=== PATIENT | female | born 1990 | race Caucasian/White ===

== ENCOUNTER 2019-03-05 13:12 | Emergency (ER) | payer OTHER ==
--- NOTE | 2019-03-05 14:22 | ULT ---
EXAM: US Pelvic W Doppler PROVIDED CLINICAL HISTORY: Vaginal bleeding in patient with positive . COMPARISON: None FINDINGS: There is evidence of a single intrauterine gestation. Cardiac Doppler does demonstrates heart t ones with a heart rate of 168 bpm. The crown-rump length measures 2.63 cm corresponding to gestational age by ultrasound of 9 weeks and 3 days with an TERESO on 10/05/2019. The gestational age by last menstrual period is 9 weeks and 5 days. Adjacent to the inferior aspect of the gestational sac, there is a small crescentic hypoechoic area m easuring 1.9 cm x 0.8 cm x 2.2 cm. Color flow evaluation does not demonstrate flow in this region. This is most suggestive of a small subchorionic hemorrhage. Small anechoic structure measuring 1.1 cm is seen in the left ovary which may represent a corpus lute al cyst. Flow is demonstrated within the left ovary on color flow evaluation spectral analysis. The right ovary is not visualized. IMPRESSION: 1. Small subchorionic hemorrhage. Continued follow-up evaluation is recommended. 2. Single intrauterine gestation with heart tones documented. Gestational age by measurement of the crown-rump length is 9 weeks and 3 days.
[2019-03-05 14:26] LABS: #Basophils 0.1 thou/uL (0.0-0.2); #Eosinphils 0.1 thou/uL (0.0-0.7); #Lymphocytes 2.7 thou/uL (1.20-3.40); #Monocytes 0.7 thou/uL (0.11-0.59); #Neutrophils 7.3 thou/uL (1.40-6.50); %Basophils 0.5 % (0.0-1.0); %Eosinophils 0.6 % (0.0-10.0); %Lymphocytes 25.1 % (21.0-51.0); %Monocytes 6.8 % (0.0-10.0); Hemoglobin 13.4 g/dL (12.0-16.0); Mean Corpuscular Hemoglobin 31.3 pg (27.0-31.0); Mean Corpuscular Volume 89.5 fL (78.0-98.0); Mean Platelet Volume 8.3 fL (7.4-10.4); Platelet Count 175 thou/uL (130-400); RBC Distribution Width 11.6 % (11.5-14.5); Red Blood Cell (RBC) Count 4.28 mill/uL (4.20-5.40); White Blood Cell (WBC) Count 10.9 thou/uL (4.8-10.8)
[2019-03-05 16:16] LABS: Bacteria/HPF None Seen HPF (None Seen); Bilirubin Negative (Negative); Blood, Urine 2+ (Negative); Clarity Clear (Clear); Glucose, Urine (Dipstick) Normal (Negative); Leukocyte 25 Leu/uL (Negative); Nitrite Negative (Negative); Protein, Urine (Dipstick) Negative (Neg-Trace); RBC/HPF 0-3 HPF (0-3); Squamous Epithelial 0-3 HPF (0-3)
== END 2019-03-05 17:33 | disposition home or self-care (01) ==
LOC: ERS 13:12
DX: O20.0 Threatened abortion (principal); Z87.891 Personal history of nicotine dependence; Z79.899 Other long term (current) drug therapy; Z3A.10 10 weeks gestation of pregnancy
CPT/HCPCS: 36415; 76856; 81003; 81015; 84702; 85025; 86900; 86901; 87086; 90384; 93976; 96372

== ENCOUNTER 2019-08-30 18:52 | Day surgery (SDC) | payer OTHER ==
[2019-08-30] MEDS ORDERED: hydrALAZINE 20 MG/ML VIAL SLOW IVP PRN (19:23)
[2019-08-30 19:43] LABS: Bacteria/HPF None Seen HPF (None Seen); Bilirubin Negative (Negative); Blood, Urine Negative (Negative); Clarity Clear (Clear); Glucose, Urine (Dipstick) Normal (Negative); Leukocyte Negative Leu/uL (Negative); Nitrite Negative (Negative); Protein, Urine (Dipstick) Negative (Neg-Trace); RBC/HPF 0-3 HPF (0-3); Urobilinogen 3 mg/dL (Less than 2); WBC/HPF 0-3 HPF (0-3)
--- NOTE | 2019-08-31 07:13 | ER ---
DATE OF SERVICE: OB ED NOTE: TIME OF SERVICE: 2000 hours. PRESENTING COMPLAINT: Abdominal and lower back pain at 35 weeks' gestation. HISTORY OF PRESENT ILLNESS: Ms. Arriaga is a 28-year-old, 3, para 1, AB1 at 35 weeks and 1 day with a due date of 10/03. She sees Dr. Devi, [facility], who has had an unremarkable . She is scheduled for repeat on 09/29. She has had a history of kind of lower abdominal cramping. No change of discharge. No bleeding. No loss of fluid. She has had an active fetus. She was seen in the office earlier today with same complaints and re-presents to Labor and Delivery. 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 Pap negative. Rubella immune. VDRL nonreactive. Hepatitis B, GC, chlamydia negative. 50 g not done. PAST MEDICAL HISTORY: None. PAST SURGICAL HISTORY: . ALLERGIES: DENIES. MEDICATIONS: vitamins. SOCIAL HISTORY: Denies tobacco, alcohol, or drug use. FAMILY HISTORY: Noncontributory. REVIEW OF SYSTEMS: Noncontributory. PHYSICAL EXAMINATION: GENERAL: White female, in no acute distress. VITAL SIGNS: Temperature 98.5, respirations 18, blood pressure 118/72, pulse 85. HEENT: Within normal limits. LUNGS: Clear to auscultation bilaterally. HEART: Regular rhythm. ABDOMEN: Soft and nontender. Fundal height 35. FHTs 140s. GENITALIA: Vulva without lesions. Vaginal exam deferred. EXTREMITIES: No clubbing, cyanosis, or edema. Prolonged monitoring is carried out for greater than an hour because of lower abdominal pain, which revealed a category 1 tracing. Positive accelerations, no decelerations. Fem cath urinalysis was done, which was completely negative with no evidence of UTI. IMPRESSION: Discomforts of , no evidence of labor, urinary tract infection at 35 weeks' gestation. PLAN: ER precautions. Discharge home. Routine followup with Dr. Devi. Job ID: [id number]
== END 2019-08-30 20:05 | disposition home or self-care (01) ==
LOC: L&D/OP 18:52
PROVIDERS: ATTEND Obstetrics & Gynecology
DX: O99.89 Other specified diseases and conditions complicating pregnancy, childbirth and the puerperium (principal); R10.30 Lower abdominal pain, unspecified; M54.5 Low back pain; O23.43 Unspecified infection of urinary tract in pregnancy, third trimester; O34.219 Maternal care for unspecified type scar from previous cesarean delivery; O09.293 Supervision of pregnancy with other poor reproductive or obstetric history, third trimester; Z3A.35 35 weeks gestation of pregnancy
CPT/HCPCS: 81001; 99282

== ENCOUNTER 2019-09-29 10:12 | Inpatient (IN) | payer OTHER ==
[2019-09-29] MEDS ORDERED: Bicitra 30 ML UDCUP PO SCH (10:49)
[2019-09-29] MEDS ORDERED: Promethazine HCl 25 MG/ML VIAL IM PRN ×3 (10:49→15:32)
[2019-09-29] MEDS ORDERED: Ondansetron PF 4 MG/2 ML Vial IVP PRN ×3 (10:49→15:32)
[2019-09-29] MEDS ORDERED: hydrALAZINE 20 MG/ML VIAL SLOW IVP PRN ×2 (10:49→15:32)
[2019-09-29 10:58] VITALS: BMI 39.4
[2019-09-29] MEDS ORDERED: CEFAZOLIN 2 GM in Premix Bag 1 BAG IVPB SCH (11:00)
[2019-09-29] MEDS: Lactated Ringer's 1,000 ML IV SCH ×2 (11:09→11:52)
[2019-09-29 11:35] LABS: Hemoglobin 13.3 g/dL (12.0-16.0); Mean Corpuscular HGB CONC 33.7 g/dL (32.0-36.0); Mean Corpuscular Hemoglobin 30.5 pg (27.0-31.0); Mean Corpuscular Volume 90.3 fL (78.0-98.0); Mean Platelet Volume 7.9 fL (7.4-10.4); Platelet Count 213 thou/uL (130-400); RBC Distribution Width 13.5 % (11.5-14.5); Red Blood Cell (RBC) Count 4.36 mill/uL (4.20-5.40); White Blood Cell (WBC) Count 17.9 thou/uL (4.8-10.8)
[2019-09-29] MEDS ORDERED: MORPHINE 5 MG/10 ML PF VIAL ONE (11:56)
[2019-09-29] MEDS ORDERED: PHENYLEPHRINE-NS 100 MCG/ML 10 ML SYRINGE ONE (11:57)
[2019-09-29] MEDS ORDERED: Oxytocin 10 UNITS/ML VIAL ONE (11:57)
[2019-09-29 12:13] LABS: HBSAg Index 0.24 S/CO (0-0.99); Hep B Surf Ag Non-Reactive S/CO (NonReactive); Syphilis Antibody Nonreactive (Nonreactive); Syphilis Antibody Index 0.03 S/CO (<1.00 Non-Reactive)
[2019-09-29] MEDS ORDERED: Naloxone HCl 0.4 mg/ml Vial IV PRN (12:40)
[2019-09-29] MEDS ORDERED: L&D-Morphine 4 MG/ML VIAL SLOW IVP PRN (12:40)
[2019-09-29] MEDS ORDERED: HYDROmorphone 2 MG/ML VIAL SLOW IVP PRN (12:40)
[2019-09-29] MEDS ORDERED: Naloxone HCl 0.4 mg/ml Vial IVP PRN ×2 (12:40)
[2019-09-29] MEDS ORDERED: Ketorolac Tromethamine 30 MG/ML VIAL IVP PRN (12:40)
[2019-09-29] MEDS ORDERED: Ondansetron HCl/PF 4 MG/2 ML Vial IVP PRN (12:40)
[2019-09-29] MEDS ORDERED: diphenhydrAMINE 50 MG/ML VIAL IVP PRN (12:40)
[2019-09-29] MEDS ORDERED: Promethazine HCl 25 MG SUPP PR PRN (12:40)
[2019-09-29] MEDS ORDERED: Meperidine HCl/PF 25 MG/ML VIAL SLOW IVP PRN (12:40)
[2019-09-29] MEDS ORDERED: Ketorolac Tromethamine 30 MG/ML VIAL IVP SCH (12:45)
[2019-09-29] MEDS ORDERED: Communication Order-Pharmacy FS SCH (12:45)
[2019-09-29] MEDS ORDERED: NS / Oxytocin 40 units/1000ml 1,000 ML ONE (14:38)
--- NOTE | 2019-09-29 14:55 | OP ---
DATE OF PROCEDURE: 09/29/2019 PREOPERATIVE DIAGNOSES: 1. A 28-year-old white female, G3, P1, A1 at 39 and 40 weeks' gestation. 2. Prior section, desires repeat. POSTOPERATIVE DIAGNOSES: 1. A 28-year-old white female, G3, P1, A1 at 39 and 40 weeks' gestation. 2. Prior section, desires repeat. PROCEDURE PERFORMED: Repeat low-transverse section without extensions. ART THERAPY CERTIFIED SUPERVISOR SURGEON: Alysa Olivares PA-C ANESTHESIA: Spinal block. ESTIMATED BLOOD LOSS: 350 mL. COMPLICATIONS: None. COUNTS: Correct x2. ANTIBIOTICS: 2 g Ancef on-call to OR. FINDINGS: 1. Vigorous male , Apgars 8 and 8. Clear amniotic fluid noted. Vertex presentation. weight pending. 2. Normal-appearing fallopian tubes, uterus, and ovaries. Clear urine noted. DISPOSITION: To recovery room, stable. DESCRIPTION OF PROCEDURE: The patient previously received informed consent in regard to surgery. She was taken back to the operating room, where she received a spinal block without complications. She was placed in supine position, prepped and draped in usual sterile fashion. Mathew catheter and SCDs had been placed. A Pfannenstiel incision was made in the prior scar site, was carried down the fascia. Fascia was nicked in the midline. Fascial incision was extended bilaterally with the use of curved Metzger scissors. The rectus fascia was dissected superiorly and inferiorly off the rectus muscle bellies. The rectus muscle belly was divided in midline. Peritoneal cavity was entered. Peritoneal incision was extended. A large Cedric O retractor was placed. A 2-cm hysterotomy incision then was made above the reflection of the vesicouterine peritoneum and this was extended via finger fractionation. The amniotic bag was ruptured of clear fluid and the baby was delivered in the vertex presentation. Mouth and nares of the infant were bulb suctioned on the abdomen. The cord was doubly clamped and cut and handed to the pediatric team in attendance. Usual cord blood was obtained and placenta was manually extracted. The uterus was curetted of any remaining placental fragments with dry laparotomy sponge. The hysterotomy incision was inspected and no extensions were noted. The hysterotomy incision was closed in a running locking fashion with #1 Monocryl. An additional [id number] stitch was placed in the left angle and ran into the midline in a running locking fashion securing hemostasis. The pelvis was then irrigated and suctioned. Hemostasis along the hysterotomy site again was confirmed. The Cedric O retractor was removed. The rectus muscle bellies were inspected and noted to be hemostatic prior to fascial closure. The fascia was closed with 0 PDS suture x2 in a running continuous fashion. Subcutaneous tissue was irrigated and noted to be hemostatic. An interrupted 3-0 plain gut was placed in the subcu for approximation. Skin was then closed with pedro. Surgery was terminated. No anesthetic or surgical complications occurred. Job ID: [id number]
[2019-09-29] MEDS ORDERED: Ketorolac Tromethamine 30 MG/ML VIAL ONE (15:15)
[2019-09-29] MEDS ORDERED: HYDROcodone/Acetaminophen 5/325 mg Tablet PO PRN (15:32)
[2019-09-29] MEDS ORDERED: Zolpidem Tartrate 5 MG TAB PO PRN (15:32)
[2019-09-29] MEDS ORDERED: diphenhydrAMINE 25 MG CAP PO PRN (15:32)
[2019-09-29] MEDS ORDERED: Simethicone Chewable 80 MG TAB PO PRN (15:32)
[2019-09-29] MEDS ORDERED: Acetaminophen 325 MG TAB PO PRN (15:32)
[2019-09-29] MEDS ORDERED: Bisacodyl 10 MG SUPP PR PRN (15:32)
[2019-09-29] MEDS ORDERED: Lanolin Ointment 7 GM TUBE TOP PRN (15:32)
[2019-09-29] MEDS: Ferrous Sulfate 325 MG TAB PO SCH (20:48)
[2019-09-29] MEDS: Docusate Calcium (SURFAK) 240 MG CAP PO SCH (21:53)
[2019-09-29] MEDS: Ibuprofen 800 MG TAB PO SCH (22:50)
[2019-09-30] MEDS: Ibuprofen 800 MG TAB PO SCH ×4 (05:48→21:19)
[2019-09-30 06:37] LABS: Hemoglobin 11.4 g/dL (12.0-16.0); Mean Corpuscular HGB CONC 33.9 g/dL (32.0-36.0); Mean Corpuscular Hemoglobin 31.1 pg (27.0-31.0); Mean Corpuscular Volume 91.7 fL (78.0-98.0); Mean Platelet Volume 8.1 fL (7.4-10.4); Platelet Count 186 thou/uL (130-400); RBC Distribution Width 13.5 % (11.5-14.5); Red Blood Cell (RBC) Count 3.66 mill/uL (4.20-5.40); White Blood Cell (WBC) Count 16.9 thou/uL (4.8-10.8)
--- NOTE | 2019-09-30 07:59 | PDOC.PP ---
Post Progress Note Post Day #: 1 PO intake tolerated: yes Flatus: yes Ambulation: yes Vital Signs (12 hours) Temp Pulse Resp BP Pulse Ox 09/30/19 05:47 98.7 F 65 14 99/55 L 96 09/30/19 00:37 98.5 F 70 12 106/54 L 98 09/29/19 20:22 98.5 F 62 16 105/53 L 97 Weight Weight 230 lb - Physical Examination Abdominal: + bowel sounds, lochia, no distention, appropriately TTP Result Diagrams: 09/30/19 06:10 Additional Labs: Post Labs Blood Type A NEGATIVE 09/29/19 10:59 Hep Bs Antigen Non-Reactive S/CO (NonReactive) 09/29/19 10:59 - Assessment/Plan Post op day 1 from repeat c/s. Doing well. Normal vitals and post op hct - expected. routine care...
[2019-09-30] MEDS ORDERED: Adacel (T-DAP) 0.5 ML SYRINGE IM ONE (09:00)
[2019-09-30] MEDS: Ferrous Sulfate 325 MG TAB PO SCH ×2 (09:20→21:09)
[2019-09-30] MEDS: Docusate Calcium (SURFAK) 240 MG CAP PO SCH ×2 (09:28→21:19)
[2019-09-30] MEDS: Prenatal Vitamin 1 TAB PO SCH (09:28)
[2019-09-30] MEDS: HYDROcodone/Acetaminophen 5/325 mg Tablet PO PRN (10:57)
[2019-10-01] MEDS: Ibuprofen 800 MG TAB PO SCH ×2 (05:29→13:33)
[2019-10-01] MEDS: HYDROcodone/Acetaminophen 5/325 mg Tablet PO PRN (05:30)
--- NOTE | 2019-10-01 06:46 | PDOC.PP ---
Post Progress Note Post Day #: 2 PO intake tolerated: yes Flatus: yes Ambulation: yes Vital Signs (12 hours) Temp Pulse Resp BP Pulse Ox 10/01/19 05:32 97.9 F 56 L 14 104/79 99 10/01/19 00:05 98.2 F 64 14 136/75 98 09/30/19 19:42 98.0 F 81 16 118/57 L 97 Weight Weight 230 lb Result Diagrams: 09/30/19 06:10 Additional Labs: Post Labs Blood Type A NEGATIVE 09/29/19 10:59 Hep Bs Antigen Non-Reactive S/CO (NonReactive) 09/29/19 10:59 - Assessment/Plan Doing well post op day 2. D/c home today . pedro out with incision check post op day 7. 6 weeks post .
[2019-10-01] MEDS: Ferrous Sulfate 325 MG TAB PO SCH (08:47)
[2019-10-01] MEDS: Docusate Calcium (SURFAK) 240 MG CAP PO SCH (08:56)
[2019-10-01] MEDS: Prenatal Vitamin 1 TAB PO SCH (08:56)
[2019-10-01 12:02] VITALS: BP 104/53; TEMP 99.1
== END 2019-10-01 14:15 | disposition home or self-care (01) | DRG 788 ==
LOC: L&D 10:12 → 3SW 15:58
PROVIDERS: ADMIT Obstetrics & Gynecology; ATTEND Obstetrics & Gynecology
PROC: 10D00Z1 Extraction of Products of Conception, Low, Open Approach (ICD-10-PCS; principal; 2019-09-29)
DX: O34.211 Maternal care for low transverse scar from previous cesarean delivery (principal); Z3A.40 40 weeks gestation of pregnancy; Z37.0 Single live birth
CPT/HCPCS: 36415; 85027; 86780; 86850; 86870; 86900; 86901; 87340; J0690; J1885; J2274; J2405; J2590

== ENCOUNTER 2020-03-10 23:39 | Emergency (ER) | payer OTHER, SELFPAY ==
[2020-03-11 00:01] LABS: #Eosinphils 0.1 thou/uL (0.0-0.7); #Monocytes 0.7 thou/uL (0.11-0.59); #Neutrophils 9.3 thou/uL (1.40-6.50); %Basophils 0.4 % (0.0-1.0); %Eosinophils 0.7 % (0.0-10.0); %Lymphocytes 16.3 % (21.0-51.0); %Monocytes 5.8 % (0.0-10.0); %Neutrophils 76.8 % (42.0-75.0); Hemoglobin 14.4 g/dL (12.0-16.0); Mean Corpuscular HGB CONC 34.1 g/dL (32.0-36.0); Mean Corpuscular Hemoglobin 31.4 pg (27.0-31.0); Mean Corpuscular Volume 92.1 fL (78.0-98.0); Mean Platelet Volume 8.3 fL (7.4-10.4); Platelet Count 238 thou/uL (130-400); RBC Distribution Width 11.6 % (11.5-14.5); Red Blood Cell (RBC) Count 4.59 mill/uL (4.20-5.40); White Blood Cell (WBC) Count 12.1 thou/uL (4.8-10.8)
[2020-03-11 00:09] LABS: Bacteria/HPF 1+ HPF (None Seen); Bilirubin Negative (Negative); Blood, Urine 1+ (Negative); Clarity Turbid (Clear); Glucose, Urine (Dipstick) Normal (Negative); Ketone, Urine Negative (Negative); Leukocyte 500 Leu/uL (Negative); Nitrite Negative (Negative); Protein, Urine (Dipstick) 30 mg/dL (Neg-Trace); Specific Gravity, Urine 1.014 (1.002-1.036); WBC/HPF Greater than 50 HPF (0-3); pH, Urine 6.5 (5.0-9.0)
[2020-03-11 00:10] LABS: BHCG - Serum Negative (NEGATIVE); Pregs Control Background? CLEAR/WHITE (CLR/WHITE); Pregs Control Bar Appear? YES (CONTROL BAR)
[2020-03-11 00:22] LABS: ALT (SGPT) 8 U/L (8-55); AST (SGOT) 11 U/L (5-34); Alkaline Phosphatase 64 U/L (40-110); Anion Gap 10 mmol/L (10-20); BUN (Urea Nitrogen) 10 mg/dL (7.0-18.7); Bilirubin, Total 0.6 mg/dL (0.2-1.2); Calc. Creatinine Clearance 0 mL/min (70-130); Calcium 9.5 mg/dL (7.8-10.44); Carbon Dioxide 27 mmol/L (22-29); Chloride 106 mmol/L (98-107); Estimated GFR-MDRD Greater than 90; Globulin 3.4 g/dL (2.4-3.5); Glucose 99 mg/dL (70-105); Potassium 4.3 mmol/L (3.5-5.1); Protein, Total 7.4 g/dL (6.0-8.3); Sodium 139 mmol/L (136-145)
[2020-03-11] MEDS ORDERED: Ketorolac Tromethamine 30 MG/ML VIAL ONE (00:31)
[2020-03-11] MEDS ORDERED: Ondansetron PF 4 MG/2 ML Vial ONE (00:31)
[2020-03-11] MEDS ORDERED: cefTRIAXone\\ROCEPHIN 1 GM VIAL ONE (01:43)
--- NOTE | 2020-03-11 07:44 | CT ---
PRELIMINARY REPORT/[facility]/EMERGENCY AFTER HOURS PROCEDURE EXAM: CT Abdomen and Pelvis Without Intravenous Contrast CLINICAL HISTORY: BILATERAL FLANK PAIN SINCE FRIDAY. NOW HAVING HEMATURIA. TECHNIQUE: Axial computed tomography images of the abdomen and pelvis without intravenous contrast. CONTRAST: None. COMPARISON: None provided. FINDINGS: LUNG BASES: No basilar airspace consolidation or pleural effusion. LIVER: Unremarkable. GALLBLADDER AND BILE DUCTS: Unremarkable. No calcified stone. No ductal dilation. PANCREAS: Unremarkable. SPLEEN: Unremarkable. ADRENAL GLANDS: Unremarkable. KIDNEYS, URETERS, AND BLADDER: Unremarkable. No hydronephrosis or nephrolithiasis. No ureteral or bladder calculi. Mild hazy strandi ng surrounding the urinary bladder. STOMACH AND BOWEL: No obstruction. No wall thickening. No CT evidence of colitis or acute diverticulitis. APPENDIX: No CT evidence for appendicitis. PERITONEUM: No free fluid. No free air. LYMPH NODES: No lymphadenopathy. REPRODUCTIVE: Unremarkable as visualized. VASCULATURE: No aortic aneurysm. ABDOMINAL WALL AND SOFT TISSUES: Unremarkable. BONES: No fracture or suspicious osseous abnormality. IMPRESSION: 1. No acute intra-abdominal or pelvic abnormality. 2. No urolithiasis or obstructive uropathy. 3. Mild hazy stranding surrounding the urinary bladder. Correlate for acute cystitis. ELECTRONICALLY SIGNED BY: Kemal hCang DO Mar 11, 2020 1:20:48 AM CDT This report is intended for review by the ordering physician only, in accordance of law. If you recei ve this report in error, please call [facility] at [phone]. FINAL REPORT CT Stone Protocol History: Bilateral flank pain Comparison: CT examination 2017 Findings/impression: Concordant with the preliminary report. Transcribed Date/Time: 03/11/2020 8:42 AM
== END 2020-03-11 02:13 | disposition home or self-care (01) ==
LOC: ERS 23:39
DX: N10 Acute pyelonephritis (principal); Z87.891 Personal history of nicotine dependence; Z79.899 Other long term (current) drug therapy
CPT/HCPCS: 36415; 74176; 80053; 81003; 81015; 84703; 85025; 96365; 96375; J0696; J1885; J2405

== ENCOUNTER 2020-10-29 21:56 | Emergency (ER) | payer OTHER, SELFPAY ==
[2020-10-29] MEDS ORDERED: predniSONE 20 MG TAB ONE (22:28)
[2020-10-29] MEDS ORDERED: hydrOXYzine 25 MG TAB ONE (22:28)
== END 2020-10-29 22:57 | disposition home or self-care (01) ==
LOC: ERS 21:56
DX: L50.9 Urticaria, unspecified (principal); Z79.899 Other long term (current) drug therapy; F17.210 Nicotine dependence, cigarettes, uncomplicated
CPT/HCPCS: 99282; J7512

== ENCOUNTER 2024-05-10 22:50 | Emergency (ER) | payer OTHER ==
[2024-05-11 00:03] LABS: Bilirubin Negative (Negative); Blood, Urine 3+ (Negative); CAUTI Indications for Culture Pelvic or flank pain; Clarity Clear (Clear); Glucose, Urine (Dipstick) Normal (Negative); Ketone, Urine Negative (Negative); Leukocyte 75 Leu/uL (Negative); Nitrite Negative (Negative); Protein, Urine (Dipstick) 30 mg/dL (Neg-Trace); Specific Gravity, Urine 1.037 (1.002-1.036)
[2024-05-11 00:15] LABS: Bacteria/HPF 1+ HPF (None Seen)
[2024-05-11 00:16] LABS: Urine Culture Reflex Yes Yes
[2024-05-11 00:18] LABS: #Basophils 0.03 10x3/uL (0.0-0.2); %Basophils 0.4 % (0.0-1.0); %Eosinophils 0.6 % (0.0-10.0); %Lymphocytes 19.4 % (21.0-51.0); %Monocytes 8.2 % (0.0-10.0); %Neutrophils 71.1 % (42.0-75.0); Hematocrit 46.7 % (36.0-47.0); Hemoglobin 15.6 g/dL (12.0-16.0); Mean Corpuscular HGB CONC 33.4 g/dL (32.0-36.0); Mean Corpuscular Hemoglobin 30.6 pg (27.0-31.0); Mean Corpuscular Volume 91.6 fL (78.0-98.0); Mean Platelet Volume 10.3 fL (7.4-10.4); Platelet Count 201 10x3/uL (130-400); RBC Distribution Width 12.6 % (11.5-14.5)
[2024-05-11] MEDS ORDERED: Ketorolac Tromethamine 30 MG (1 mL) VIAL ONE (00:25)
[2024-05-11 00:33] LABS: BHCG - Serum Negative (NEGATIVE); Pregs Control Background? CLEAR/WHITE (CLR/WHITE); Pregs Control Bar Appear? YES (CONTROL BAR)
[2024-05-11 00:35] LABS: ALT (SGPT) 10 U/L (8-55); AST (SGOT) 15 U/L (5-34); Albumin 3.7 g/dL (3.5-5.0); Alkaline Phosphatase 61 U/L (40-110); Anion Gap 16 mmol/L (10-20); BUN (Urea Nitrogen) 9 mg/dL (7.0-18.7); Bilirubin, Total 1.3 mg/dL (0.2-1.2); Calc. Creatinine Clearance 0 mL/min (70-130); Calcium 8.8 mg/dL (7.8-10.44); Carbon Dioxide 19 mmol/L (22-29); Chloride 105 mmol/L (98-107); Estimated GFR 103; Globulin 3.7 g/dL (2.4-3.5); Glucose 99 mg/dL (70-105); Potassium 3.2 mmol/L (3.5-5.1); Protein, Total 7.4 g/dL (6.0-8.3); Sodium 137 mmol/L (136-145)
[2024-05-11] MEDS ORDERED: Ondansetron PF 4 MG/2 ML Vial ONE (01:49)
[2024-05-11] MEDS ORDERED: Potassium Chloride 20 MEQ TAB ONE (02:31)
[2024-05-11] MEDS ORDERED: Sodium Chloride 0.9% 100 ML ONE (02:55)
[2024-05-11] MEDS ORDERED: cefTRIAXone (ROCEPHIN) 500 MG VIAL ONE (02:55)
[2024-05-11 05:53] LABS: Chlamydia by PCR, Vaginal Swab Not Detected (NotDetected); GC by PCR, Vaginal Swab Not Detected (NotDetected)
[2024-05-11] MEDS ORDERED: Iopamidol 370 76% 100 ML VIAL ONE (09:56)
== END 2024-05-11 03:23 | disposition home or self-care (01) ==
LOC: ERS 22:50
DX: N72 Inflammatory disease of cervix uteri (principal); N39.0 Urinary tract infection, site not specified; E87.6 Hypokalemia
CPT/HCPCS: 36415; 74177; 80053; 81001; 83690; 84703; 85025; 87086; 87480; 87491; 87510; 87591; 87660; 96361; 96374; 96375; J0696; J1885; J2405; Q9967